=== PATIENT | male | born 1990 | race Caucasian/White ===

== ENCOUNTER 2016-06-20 11:53 | Emergency (ER) | payer OTHER ==
[~2016-06-20] VITALS: Ht 185.4 cm; Wt 72.2 kg
[~2016-06-20 11:53] MED LIST: NOTE
[2016-06-20 12:00] VITALS: TEMP 36.8; Ht 185.4 cm; Wt 72.2 kg
[2016-06-20] MEDS ORDERED: ALBUTEROL HFA 8 GM INHALER INH STA (12:15)
[2016-06-20] MEDS ORDERED: AZITTAB PO (12:17)
--- NOTE | 2016-06-20 12:28 | EMERGENCY ROOM VISIT NOTE ---
History First contact with patient: 12:07 Chief Complaint: COUGH Stated Complaint: ABD PAIN, SORETHROAT, MIGRAINE, WHEEZING Nursing Triage Summary: pt has had cough for 3 days. yellow sputum. coughing is causing h/a and abd soreness. took OTC meds without relief. History of Present Illness The patient is a 25 year old male who presents to the Emergency Room with complaints of multiple symptoms including runny nose, congestion, cough, wheezing and abdominal pain from coughing. The patient reports that he developed runny nose and congestion approximately one week ago. This settled into his chest, although he does have mild sinus congestion. The patient reports that the coughing is worsening. He denies any fevers or chills. The patient does smoke a pack of cigarettes daily. He denies history of asthma or chronic lung conditions. Review of Systems 10 system review was performed and was negative except for pertinent positives and negatives as indicated in history of present illness Past Medical/Surgical History Medical Problems: (1) Right hand fracture Family History Unremarkable Social History Smoking Status: Current Every Day Smoker Alcohol Use: none Marital Status: single Occupation Status: employed Current/Historical Medications Scheduled Azithromycin (Zithromax Z-Saad), 0 PO UD Allergies Coded Allergies: No Known Allergies (Unverified , 06/20/16) Physical Exam Vital Signs Date Time Temp Pulse Resp B/P Pulse Ox O2 Delivery O2 Flow Rate FiO2 06/20/16 12:08 Room Air 06/20/16 12:00 36.8 98 20 147/77 97 Room Air Physical Exam CONSTITUTIONAL: Healthy and well nourished. Alert and oriented X 3 with positive affect. Patient has a mild nonproductive cough. HEENT: Normocephalic, atraumatic. Pupils equal, round and reactive. Ears and nares are clear. No scleral icterus or conjunctival injection. OROPHARYNX: Mild posterior pharyngeal erythema without postnasal drip, tonsillar hypertrophy or exudates. NECK: Full active range of motion without discomfort. No nuchal rigidity. LYMPHATICS: No cervical chain adenopathy. RESPIRATORY: Clear to auscultation bilaterally with no wheezing, crackles, rhonchi or stridor except for mild rhonchi over the bronchial guerin. CARDIOVASCULAR: Regular rate and rhythm with no murmurs, rubs or gallops. GASTROINTESTINAL: Bowel sounds present in all quadrants. MUSCULOSKELETAL: Full range of motion of all joints without discomfort. INTEGUMENTARY: No rash or other significant dermatologic conditions noted. NEUROLOGIC: No focal neurologic deficits noted. Medical Decision & Procedures ED Course Patient history and physical exam were performed. Nurse's notes were reviewed. Vital signs were reviewed and were normal. O2 saturation is 97% on room air, and the patient is afebrile. His tree and clinical exam are consistent with acute bronchitis. The patient was provided a prescription for a Z-Saad. He was dispensed a Ventolin metered-dose inhaler with AeroChamber, and instructions for its use. He was given additional instructions for symptomatic relief, including use of an OTC cough medication, ibuprofen and Tylenol. Refrain from smoking. Follow-up with family doctor if symptoms are not improving within the next week. The patient voiced understanding of all discharge instructions, was happy with plan of care, and denied any significant symptoms at the time of discharge. Medical Decision Impression Primary Impression: Acute bronchitis Departure Information Dispostion Home / Self-Care Prescriptions Azithromycin (ZITHROMAX Z-SAAD) 250 Mg Tab 0 PO UD, #1 PKT 2 TABS DAY 1, THEN 1 TAB DAILY FOR 4 DAYS Prov: Bo Shaffer PA 06/20/16 Forms HOME CARE DOCUMENTATION FORM, IMPORTANT VISIT INFORMATION Patient Instructions Bronchitis Acute, [facility] Additional Instructions Complete all Zithromax antibiotics as prescribed. Albuterol 2 puffs every 4 hours. Take any additional OTC cough medication (Robitussin-DM) as needed for additional cough relief. Ibuprofen or Tylenol as needed for pain/fever. Follow-up with your family doctor if symptoms are not improving within the next week. Refrain from smoking. Problem Qualifiers Primary Impression: Acute bronchitis Bronchitis organism: unspecified organism Qualified Codes: J20.9 - Acute bronchitis, unspecified
[2016-06-20 12:47] VITALS: BP 123/61; PULSE 88; O2SAT 96
== END 2016-06-20 12:49 | disposition home or self-care (01) ==
LOC: C.EDB 11:55 → C.EDC 12:49
DX: J20.9 Acute bronchitis, unspecified (principal); R05 Cough; J02.9 Acute pharyngitis, unspecified; G43.909 Migraine, unspecified, not intractable, without status migrainosus; F17.210 Nicotine dependence, cigarettes, uncomplicated

== ENCOUNTER 2016-09-21 09:21 | Emergency (ER) | payer SELFPAY ==
[~2016-09-21] VITALS: Ht 185.4 cm; Wt 70.1 kg
[2016-09-21 09:23] VITALS: TEMP 36.4; Ht 185.4 cm; Wt 70.1 kg
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
[2016-09-21 10:18] LABS: URINE APPEARANCE CLEAR (CLEAR); URINE BILIRUBIN NEG (NEG); URINE COLOR DK YELLOW; URINE NITRITE NEG (NEG); URINE SPECIFIC GRAVITY 1.025 (1.000-1.030); UROBILINOGEN NEG (NEG)
[2016-09-21 10:18] LABS: BASO % 0.1 %; BASO ABS # 0.01 K/uL (0-0.2); COMPLETE YES; EOS % 2.3 %; HEMATOCRIT 48.7 % (42-52); IG% 0.1 %; LYMPH % 25.4 %; LYMPH ABS # 1.88 K/uL (1.2-3.4); MEAN CELL VOLUME 88.7 fL (80-100); MEAN CORPUSCULAR HEMOGLOBIN 30.1 pg (25-34); MEAN CORPUSCULAR HGB CONC 33.9 g/dl (32-36); MEAN PLATELET VOLUME 8.8 fL (7.4-10.4); MONO % 16.3 %; NEUT % 55.8 %; PLATELET COUNT 253 K/uL (130-400); RED BLOOD COUNT 5.49 M/uL (4.7-6.1); WHITE BLOOD COUNT 7.41 K/uL (4.8-10.8)
[2016-09-21 10:27] LABS: MANUAL MICROSCOPIC REQUIRED? NO; REVIEW REQ? NO
[2016-09-21 10:36] LABS: BENZODIAZEPINE, URINE NEG (NEG); COCAINE,URINE NEG (NEG); PHENCYCLIDINE, URINE NEG (NEG)
[2016-09-21 10:40] LABS: BUN/CREATININE RATIO 14.6 (10-20); CALCIUM 9.6 mg/dl (8.5-10.1); POTASSIUM 4.2 mmol/L (3.5-5.1)
[2016-09-21 10:50] LABS: THYROID STIMULATING HORMONE 0.505 uIu/ml (0.300-4.500)
[2016-09-21 11:57] VITALS: BP 122/66; PULSE 70; O2SAT 96
== END 2016-09-21 12:17 | disposition home or self-care (01) ==
LOC: C.EDB 09:23 → C.EDA 12:17
DX: F39 Unspecified mood [affective] disorder (principal); F17.200 Nicotine dependence, unspecified, uncomplicated; Z87.81 Personal history of (healed) traumatic fracture

== ENCOUNTER 2016-11-01 16:54 | Emergency (ER) | payer OTHER ==
[~2016-11-01] VITALS: Ht 188 cm; Wt 71.0 kg
[2016-11-01 16:57] VITALS: TEMP 36.7; Ht 188 cm; Wt 71.0 kg
[2016-11-01] MEDS ORDERED: OXYCODONE/ACETAMINOPHEN 5-325 TAB PO STA (17:10)
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
[2016-11-01] MEDS ORDERED: HYDR-5688 PO (18:27)
[2016-11-01 18:36] VITALS: BP 137/69; PULSE 97; O2SAT 98
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
== END 2016-11-01 18:42 | disposition home or self-care (01) ==
LOC: C.EDB 16:56 → C.EDD 18:42
DX: T14.8 Other injury of unspecified body region (principal); V28.0XXA Motorcycle driver injured in noncollision transport accident in nontraffic accident, initial encounter; F17.200 Nicotine dependence, unspecified, uncomplicated